=== PATIENT | male | born 1990 | race Hispanic/Latino ===

== ENCOUNTER 2017-12-27 14:16 | Emergency (ER) | payer SELFPAY ==
[2017-12-27] MEDS ORDERED: Fluorescein Opthalmic Strip ONE (14:31)
== END 2017-12-27 14:42 | disposition home or self-care (01) ==
LOC: BURERS 14:16
DX: H10.9 Unspecified conjunctivitis (principal); F17.210 Nicotine dependence, cigarettes, uncomplicated
CPT/HCPCS: 99282

== ENCOUNTER 2024-12-04 13:01 | Emergency (ER) | payer SELFPAY ==
[2024-12-04] MEDS ORDERED: Ketorolac Tromethamine 30 MG (1 mL) VIAL ONE (13:41)
[2024-12-04 13:43] LABS: #Basophils 0.1 thou/uL (0.0-0.2); #Eosinophils 0.2 thou/uL (0.0-0.7); #Lymphocytes 2.2 thou/uL (1.20-3.40); #Monocytes 1.0 thou/uL (0.11-0.59); #Neutrophils 8.8 thou/uL (1.40-6.50); %Basophils 0.7 % (0.0-1.0); %Eosinophils 1.4 % (0.0-10.0); %Lymphocytes 17.8 % (21.0-51.0); %Monocytes 7.8 % (0.0-10.0); %Neutrophils 72.3 % (42.0-75.0); Hematocrit 43.7 % (42.0-52.0); Hemoglobin 14.8 g/dL (14.0-18.0); Mean Corpuscular Hemoglobin 28.0 pg (27.0-31.0); Mean Corpuscular Volume 83.1 fl (78.0-98.0); Platelet Count 322 10x3/uL (130-400); Red Blood Cell (RBC) Count 5.26 mill/uL (4.70-6.10); White Blood Cell (WBC) Count 12.2 10x3/uL (4.8-10.8)
[2024-12-04 14:01] LABS: ALT (SGPT) 51 U/L (Less than 45); AST (SGOT) 34 U/L (11-34); Albumin 3.9 g/dL (3.1-4.5); Alkaline Phosphatase 78 U/L (40-110); Anion Gap 17 mmol/L (10-20); BUN (Urea Nitrogen) 13 mg/dL (8.9-20.6); Bilirubin, Total 0.5 mg/dL (0.3-1.2); Calc. Creatinine Clearance 0 mL/min (70-130); Calcium 9.0 mg/dL (7.8-10.44); Carbon Dioxide 20 mmol/L (22-29); Chloride 106 mmol/L (98-107); Globulin 4.5 g/dL (2.4-3.5); Glucose 96 mg/dL (70-105); Potassium 3.7 mmol/L (3.5-5.1); Sodium 139 mmol/L (136-145)
[2024-12-04] MEDS ORDERED: cefTRIAXone (ROCEPHIN) 2 GM VIAL ONE (14:34)
== END 2024-12-04 15:17 | disposition home or self-care (01) ==
LOC: BURERS 13:01
DX: L03.115 Cellulitis of right lower limb (principal)
CPT/HCPCS: 36415; 71045; 80053; 83605; 85025; 85379; 87040; 93005; 94760; 96365; 96375; J0696; J1885